=== PATIENT | male | born 1965 | race Caucasian/White ===

== ENCOUNTER 2017-01-11 10:28 | Inpatient (IN) | payer OTHER ==
[~2017-01-11] VITALS: Ht 172.7 cm; Wt 49.4 kg
[2017-01-11] VITALS (23 sets, daily range): BP systolic 149–200; BP diastolic 72–92; PULSE 70–103; RESP 18–37; Ht 172.7 cm; Wt 49.4 kg
[~2017-01-11 10:28] MED LIST: FURO40TA4 PO; HEP30MU30 IJ; LABE100T3 PO; LOSA100T7 PO; PEN500 PO
[2017-01-11] MEDS ORDERED: ECUL300V IV (11:18)
[2017-01-11] MEDS ORDERED: SODI15OR PO (11:19)
[2017-01-11 11:33] LABS: ADD SCAN DIFF NO
[2017-01-11 11:41] LABS: BASOPHIL # 0.1 10^3/ul (0.0-0.1); EOSINOPHILS # 0.3 10^3/ul (0.0-0.5); EOSINOPHILS % 4.6 % (0.0-7.0); HEMATOCRIT 32.2 % (42.0-52.0); HEMOGLOBIN 10.7 g/dl (14.0-18.0); LYMPHOCYTES # 1.5 10^3/ul (0.8-2.9); LYMPHOCYTES % 24.1 % (15.0-51.0); MEAN CORPUSCULAR HEMOGLOBIN 33.6 pg (29.0-33.0); MEAN CORPUSCULAR HGB CONC 33.2 g/dl (32.0-37.0); MEAN CORPUSCULAR VOLUME 101.3 fl (82.0-101.0); MEAN PLATELET VOLUME 10.9 fl (7.4-10.4); MONOCYTE # 0.4 10^3/ul (0.3-0.9); MONOCYTES % 5.9 % (0.0-11.0); NEUTROPHIL # 3.9 10^3/ul (1.6-7.5); NEUTROPHILS % 63.9 % (39.0-77.0); PLATELET COUNT 113 10^3/UL (140-415); RED BLOOD COUNT 3.18 10^6/ul (4.70-6.10); RED CELL DISTRIBUTION WIDTH 12.3 % (11.5-14.5); WHITE BLOOD COUNT 6.1 10^3/ul (4.8-10.8)
[2017-01-11 12:17] LABS: INR 1.02; PROTIME 13.4 Sec (12.2-14.2)
[2017-01-11 12:18] LABS: PARTIAL THROMBOPLASTIN TIME 34.3 Sec (25.0-35.0)
[2017-01-11 12:39] LABS: CALCIUM 8.9 mg/dl (8.4-10.2); CREATININE 4.65 mg/dl (0.61-1.24)
[2017-01-11] MEDS ORDERED: LIDOCAINE 1% (MDV) 20 ML INJ ONE (13:30)
[2017-01-11] MEDS ORDERED: HEPARIN 1000 UNITS/ML 10 ML INJ ONE (13:30)
--- NOTE | 2017-01-11 14:24 | OPR ---
Date/Time of Note Date/Time of Note DATE: 01/11/17 TIME: 14:23 Operative Report Free Text/Dictation DATE OF OPERATION: 01/11/2017 SURGEON: Geoff Haque MD PREOPERATIVE DIAGNOSIS: ESRD, hyperkalemia POSTOPERATIVE DIAGNOSIS: same ANESTHESIA: Local BLOOD LOSS: minimal COMPLICATIONS: None. ACCESS: Right common femoral vein INDICATIONS: This is a 51 year-old male with ESRD requiring emergent dialysis. Patient and family have been informed of the alternatives, risks, and benefits. Risks including but not limited to bleeding, thrombosis, embolization , myocardial infarction, , device malfunction, infection, pneumothorax, nephrotoxicity and patient has agreed to proceed. PROCEDURE: 1. Ultrasound guided access of right common femoral vein 2. Right common femoral vein non-tunneled hemodialysis catheter placement DESCRIPTION: The patient was in supine position in his bed. Bed was placed in slight Trendelenburg position and the groin was prepped and draped with sterile technique. The central catheter was flushed with heparin to ensure function of each port. Landmarks were identified and the skin entry site was chosen using ultrasound guidance. The skin And subcutaneous tissue were anesthetized with 1% lidocaine. The vein was then located with a needle with a 10 mL syringe using ultrasound guidance. The needle was then directed towards the vein and was entered. The needle position was secured and syringe was removed. The hub was occluded to prevent venous air embolus. The guidewire was passed easily and the needle was removed while the wire was held in place. A small incision was then made at the point of the wire entry. The dilator was placed over the wire and the tract gently dilated. The catheter was fed over the wire, ensuring the wire exited from the port before advancing the catheter. The catheter was inserted to the desired depth and the wire removed. Each port was aspirated to ensure adequate blood flow and then flushed with heparinized saline solution. The catheter was secured in place with a 2-0 nylon suture and a sterile dressing was applied. The patient tolerated the procedure well and was in stable condition. All instrument, sponge and needle counts were correct 2. GEOFF HAQUE MD Jan 11, 2017 14:24
--- NOTE | 2017-01-11 15:06 | CONS ---
DATE OF ADMISSION: 01/11/2017 DATE OF CONSULTATION: 01/11/2017 TYPE OF CONSULTATION: Vascular surgery consultation. Dear Doctors: Mr. Kenny is a 51-year-old gentleman with a past medical history of AAUS, who ended up having end-sta ge renal disease and has been on hemodialysis over the past 3.5 to 4 years. Patient had undergone a left brachiocephalic fistula creation that was done at [facility] and has been having issues with it over the past few months. The patient has been evaluated by our vascular surgery office and it was iden tified that the patient is having some areas of stenosis and neointimal hyperplasia that required a fistulogram and intervention. The patient was scheduled for intervention today; however, he present ed with having some mild chest pain and upon his laboratory workup, it was identified the patient ward s significant hyperkalemia with a potassium of 7. The patient mentioned that over the past week he has not been able to have adequate hemodialysis sessions and over the past few weeks his rates have not been able to be over 200. The patient at the moment denies shortness of breath, nausea, vomitin g, fever or chills. The patient currently denies left upper extremity claudication or rest pain-lik e symptoms. PAST MEDICAL HISTORY: 1. Entails hypertension, end-stage renal disease, on dialysis Saturday, , Saturday. 2. AAUS. 3. Childhood asthma. 4. Obsessive compulsive disorder. 5. Posttraumatic stress disorder. 6. Anxiety. 7. Postural orthostatic tachycardia syndrome. 8. Hemolytic uremic syndrome. 9. Atypical TTP syndrome. 10. Vitamin D deficiency. 11. Depression. 12. A history of multiple blood transfusions. 13. GERD. PAST SURGICAL HISTORY: 1. Multiple chest wall catheters. 2. Left upper extremity radiocephalic fistula creation. ALLERGIES: 1. BANANAS. 2. HYDRALAZINE. 3. MELONS. 4. STRAWBERRIES. MEDICATIONS: 1. Labetalol. 2. Losartan. 3. Lasix. 4. Soliris infusion. SOCIAL HISTORY: He is an active smoker, uses marijuana. He smokes 1 pack per day and also drinks c offee. He denies illicit drug use or social alcohol. FAMILY HISTORY: Entails hypertension, diabetes, cancers, kidney issues and multiple sclerosis with his sister. REVIEW OF SYSTEMS: A 12-point review was performed and negative except for what is mentioned in the HPI. PHYSICAL EXAMINATION: GENERAL: Alert and oriented x3, in no apparent distress. HEENT: Normocephalic, atraumatic. PERRLA, EOMI. Mucosa moist. Smoker's breath. Poor dentition. NECK: Supple. No carotid bruit. PULMONARY: Clear to auscultation bilaterally. No crackles. CARDIOVASCULAR: S1, S2 present. Bradycardiac. ABDOMEN: Soft, nontender, nondistended. Bowel sounds positive. EXTREMITIES: Bilateral lower extremities have a palpable femoral pulse, faint pedal pulse. Motor a nd sensory intact. Cap refill 2 to 3 seconds. No ulcers identified. Left upper extremity palpable brachial pulse. Palpable radial pulse. Motor and sensory intact. Ca pillary refill 2 to 3 seconds. Radiocephalic fistula with a weak bruit and thrill present. He has surgical scars that are well healed. ASSESSMENT AND PLAN: 1. End-stage renal disease and hyperkalemia. 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 It seems that the kalyn ent has not been able to have an adequate dialysis session and especially over the past 7 days, in [facility] his potassium currently is a level of 7. He will require emergent dialysis and he will need to be admitted. Will plan to place a Chris catheter for him with a multiport in order to have IV ac cess as well. Discussed the findings, plan and management with the patient, and he understands. 2. Optimize vascular status (BP meds, diet, nutrition, exercise, antiplatelets if recommended by PC P). 3. Discussed smoking cessation with the patient and he understands all the risks involved. Thank you for allowing us to partake in the care of your patient. Please call with any questions. Dictated By: JAMES UPTON/JOY Conf#: [id number] DID#: [id number]
--- NOTE | 2017-01-11 15:29 | HP ---
Date/Time of Note Date/Time of Note DATE: 01/11/17 TIME: 15:14 Assessment/Plan VTE Prophylaxis VTE Prophylaxis Intervention: heparin Assessment/Plan Assessment/Plan 51 yo male with a past medical history of ESRD on HD , essential hypertension, AHUS, Asthma, OCD, PTSD, POTS syndrome, Vit D deficiency, GERD, Smoking Abuse, who came in for elective fistulogram left upper extremity. 1. Severe hyperkalemia - will admit the patient to telemetry, consult nephrology for emergent dialysis, K cocktail, monitor for arrhythmias 2. ESRD on HD - - will get dialysis today, Dr. Diana Melchor consulted, Dr. Serrano c/s 3. Anemia of chronic kidney disease - monitor acute changes or drops, if hgb < 10 g/dL - continue with epogen 4. Essential hypertension - continue with current medications, holding ACEI 5. Asthma - prn duonebs 6. POTS - monitor for falls 7. AHUS - monitor active decline in platelets 8. GERD - continue with protonix 9. Psych - continue with home meds, prn ativan 10. Vit D deficiency - continue with supplementation 11. GI ppx - protonix 12. DVT ppx - heparin answered all of his questions, as per clinical course. this history and physical took greater then 45 minutes to complete HPI/ROS Admit Date/Time Admit Date/Time 01/11/2017, 3:14 pm Hx of Present Illness 51 yo male with a past medical history of ESRD on HD , essential hypertension, AHUS, Asthma, OCD, PTSD, POTS syndrome, Vit D deficiency, GERD, Smoking Abuse, who came in for elective fistulogram left upper extremity. The patient was noted to have an elevated potassium of 7.0. He had missed his dialysis for one week. He complains of paraesthesias bilateral upper extremities. Otherwise he denies any chest pain, shortness of breath, loss of consciousness, headaches, urinary/bowel irregularities, fevers/chills, nausea/ vomiting/diarrhea/constipation or other constitutional symptoms. ROS 14 point review of systems completed, please refer to HPI for any positive findings PMH/Family/Social Past Medical History ESRD on HD /, AHUS, Asthma, OCD, PTSD, POTS syndrome, Vit D deficiency Medical History: GERD, hypertension, renal disease Past Surgical History chest wall catheter placement, left upper extremity fistula placement, multiple fistulograms Family History Significant Family History: heart disease, cancer, diabetes, hypertension, renal disease Social History Alcohol Use: none Smoking Status: Current every day smoker (1 ppd) Drug Use: none Exam/Review of Systems Vital Signs Vitals Vital Signs Date Time Temp Pulse Resp B/P Pulse Ox O2 Delivery O2 Flow Rate FiO2 01/11/17 14:05 85 18 165/78 Room Air 01/11/17 11:28 97.6 98 Exam Exam Gen Jolene: mild distress 2/2 paraesthesias, AAOx4 HEENT: NC/AT, PERRLA, EOMI, no pharyngeal erythema, no tonsillar exudates, no lymphadenopathy, no JVD, no carotid bruits NECK: supple, no thyromegaly THORAX: symmetrical, no obvious deformities CV: S1S2, RRR, no M/G/R Lungs: CTAB no W/C/R/R Abd: soft, NT/ND, +BS, no rebound, no guarding, neg HSM EXT: no edema, no ecchymosis, no clubbing, FROM, LUE fistula bruit heard Neuro: CN II-XII grossly intact, bilateral upper extremity paraesthesias Psych: good mentation, alert and oriented, good mood and affect Skin: C/D/I Labs Result Diagram: 01/11/17 1113 01/11/17 1113 TREMAINE BUTLER MD Jan 11, 2017 15:29
[2017-01-11] MEDS ORDERED: NA POLYST SULFON 15 GM/60 ML BTL PO ONE (15:30)
[2017-01-11] MEDS ORDERED: DEXTROSE 50% 50 ML SYRINGE IV ONE (15:30)
[2017-01-11] MEDS ORDERED: ECULIZUMAB IV SCH (15:30)
[2017-01-11] MEDS ORDERED: DOCUSATE SODIUM 100 MG CAP PO PRN (15:30)
[2017-01-11] MEDS ORDERED: CALCIUM GLUCONATE 10% 1 GM in SOD CHLORIDE 0.9% 100 ML IVPB ONE (15:30)
[2017-01-11] MEDS ORDERED: INSULIN REGULAR, HUMAN 100 UNIT/1 ML 3ML VIAL IV ONE (15:30)
[2017-01-11] MEDS ORDERED: ONDANSETRON 4 MG INJ IV PRN (15:30)
[2017-01-11] MEDS ORDERED: NACL 0.9% 3 ML SYG IV SCH (15:30)
[2017-01-11] MEDS ORDERED: morphine 2 MG INJ IV PRN (15:30)
[2017-01-11] MEDS ORDERED: ALBUTEROL/IPRATROPIUM (NEB) 3 ML AMP HHN PRN (15:30)
[2017-01-11] MEDS ORDERED: NITROGLYCERIN (SL) 0.4 MG TAB SL PRN (15:30)
[2017-01-11] MEDS ORDERED: ACETAMINOPHEN 325 MG TAB PO PRN (15:30)
[2017-01-11] MEDS ORDERED: LORAZEPAM 2 MG INJ IV PRN (15:30)
[2017-01-11 16:44] LABS: CREATINE KINASE 109 IU/L (23-200)
[2017-01-11 16:45] LABS: MAGNESIUM 1.9 mg/dl (1.7-2.5)
[2017-01-11 16:46] LABS: CHOL/HDL RATIO 2.8 RATIO
[2017-01-11 17:05] LABS: CK-MB 1.53 ng/ml (0.0-2.4); TROPONIN-I < 0.012 ng/ml (0.00-0.12)
--- NOTE | 2017-01-11 17:20 | RADRPT ---
Vent Rate: 70 bpm RR Interval: 0 msec ID Interval: 140 msec QRS Duration: 90 msec QT Interval: 392 msec QTC Interval: 423 msec P-R-T [place]: 79 - 84 - 79 degrees Normal sinus rhythm with sinus arrhythmia Normal ECG Electronically Signed By: Josue Jasso [id number]
[2017-01-11 18:24] LABS: THYROID STIMULATING HORMONE 1.2 MIU/L (0.465-4.680)
[2017-01-11] MEDS: FUROSEMIDE 40 MG TAB PO SCH (18:53)
[2017-01-11] MEDS: LOSARTAN 50 MG TAB PO SCH (19:15)
[2017-01-11] MEDS: HEPARIN 5,000 UNIT/0.5 ML SYG SC SCH (21:00)
[2017-01-11 21:19] LABS: CREATINE KINASE 80 IU/L (23-200)
[2017-01-11 21:32] LABS: CK-MB 1.13 ng/ml (0.0-2.4)
[2017-01-11 21:33] LABS: TROPONIN-I < 0.012 ng/ml (0.00-0.12)
[2017-01-11] MEDS: LABETALOL 100 MG TAB PO SCH (21:44)
--- NOTE | 2017-01-11 22:32 | CONS ---
DATE OF ADMISSION: 01/11/2017 DATE OF CONSULTATION: 01/11/2017 NEPHROLOGY CONSULTATION REFERRING PHYSICIAN: Lalo Butler MD REASON FOR CONSULTATION: Maintenance hemodialysis in a chronic dialysis patient who presented with a clotted AV fistula. HISTORY OF PRESENT ILLNESS: This is a 51-year-old male with a past medical history of hypertension, history of hemolytic uremic syndrome who has been on hemodialysis Saturday, , Saturday. The patient has a history of atypical HUS. The patient was seen by Dr. Geoff Haque, vascular [facility] in the clinic for clotted AV fistula. The patient's also other past medical history includes obs essive compulsive disorder, asthma, PTSD, POTS syndrome, vitamin D deficiency, Smoking abuse. The p atient is planning to have an elective fistulogram because his AV fistula on the left upper extremit y is not working. He was noted to have a severe hyperkalemia with a potassium of 7 in the recovery room. His fistula plan was canceled and the patient gets admitted with a temporary Chris dialysis catheter placement to a telemetry floor. At the time of my evaluation, he was denying any chest pa in, palpitation, headache, dizziness, blurry vision, constipation, diarrhea, dysuria, increased urin keya frequency. REVIEW OF SYSTEMS: As per HPI. PAST MEDICAL HISTORY: Notable for hypertension, hyperlipidemia, atypical HUS, asthma, OCD, PTSD, PO TS syndrome, vitamin D deficiency, gastroesophageal reflux disease, smoking abuse, end-stage renal d isease on hemodialysis Saturday, , Saturday. PAST SURGICAL HISTORY: Left upper extremity AV fistula. SOCIAL HISTORY: No smoking, alcohol or recreational drug use. PHYSICAL EXAMINATION: VITAL SIGNS: Temperature 98.2, heart rate 82, respirations 16, blood pressure 189/86, saturation 99 % on room air. GENERAL: Awake, alert, mild distress due to the shortness of breath and elevated potassium. HEENT: Normal. Oropharynx clear, no jaundice. NECK: Supple, no JVD. LUNGS: Bilateral decreased breath sounds. No crackles, no wheezes. HEART: S1, S2, with regular rhythm, no murmur. ABDOMEN: Soft, nontender, nondistended. Bowel sounds are present. EXTREMITIES: No clubbing, cyanosis, or edema. Left upper extremity has AV fistula in place. NEUROLOGICAL: Nonfocal, intact. PSYCHIATRIC: Appropriate affect and mood. LABORATORY DATA/DIAGNOSTIC IMAGING: Sodium 142, potassium 7, chloride 113, bicarbonate 17, BUN 64, creatinine 4.6, glucose 85, calcium 8.9. Troponin x1 negative. Hemoglobin A1c is 6. WBC 6.1, hemo globin 10.7, platelet count is 113, PT 13.4, PTT 34.3, INR 1.02. IMPRESSION: This is a 51-year-old male with: 1. Acute hyperkalemia with potassium of 7. 2. History of end-stage renal disease on hemodialysis Saturday, , Saturday. 3. History of hypertension. 4. History of asthma. 5. History of atypical hemolytic-uremic syndrome, postural orthostatic tachycardia syndrome. 6. History of vitamin D deficiency. 7. History of gastroesophageal reflux disease. 8. History of smoking. 9. Clotted left upper extremity arteriovenous fistula. PLAN: 1. Thank you, Dr. Butler, for this consultation. I will arrange the patient's hemodialysis today as soon as possible for hyperkalemia. We will use a 2K 2.5 calcium bath. 2. Continue the other home medications for his hypertension, hydralazine IV p.r.n. systolic blood p ressure more than 150 and nifedipine. The patient is already on ____ 300 mcg IV for 14 days for his atypical hemolytic-uremic syndrome. 3. The patient was seen on the telemetry floor. We will use HYDRALAZINE p.r.n. systolic blood pres sure more than 150 and the patient will be followed up along with the primary care service and vascu lar surgery. Please note that THE PATIENT IS ALLERGIC TO HYDRALAZINE, so clonidine would be a better choice for p .r.n. systolic blood pressure more than 150. Thank you, Dr. Butler, for this consultation. I will continue to follow this patient along with [facility] primary care service and vascular service. Dictated By: CHAMP GUIDRY MD, KP/JOY Conf#: [id number] DID#: [id number] CC: GEOFF HAQUE MD; LALO BUTLER MD;*EndCC*
[2017-01-11] MEDS: ACETAMINOPHEN 325 MG TAB PO PRN (23:41)
[2017-01-12] VITALS (18 sets, daily range): BP systolic 139–188; BP diastolic 72–90; PULSE 75–106; RESP 20
[2017-01-12] MEDS: FUROSEMIDE 40 MG TAB PO SCH ×2 (06:13→22:35)
[2017-01-12] MEDS: PANTOPRAZOLE (EC) 40 MG TAB PO SCH (06:13)
[2017-01-12 07:20] LABS: ADD SCAN DIFF NO
[2017-01-12 07:28] LABS: POTASSIUM 4.6 mmol/L (3.5-5.1)
[2017-01-12 07:31] LABS: BASOPHILS % 0.3 % (0.0-2.0); CREATININE 3.15 mg/dl (0.61-1.24); EOSINOPHILS # 0.2 10^3/ul (0.0-0.5); EOSINOPHILS % 2.5 % (0.0-7.0); HEMATOCRIT 29.7 % (42.0-52.0); HEMOGLOBIN 10.3 g/dl (14.0-18.0); LYMPHOCYTES # 1.6 10^3/ul (0.8-2.9); LYMPHOCYTES % 22.9 % (15.0-51.0); MEAN CORPUSCULAR HEMOGLOBIN 33.9 pg (29.0-33.0); MEAN CORPUSCULAR HGB CONC 34.7 g/dl (32.0-37.0); MEAN CORPUSCULAR VOLUME 97.7 fl (82.0-101.0); MEAN PLATELET VOLUME 9.2 fl (7.4-10.4); MONOCYTE # 0.5 10^3/ul (0.3-0.9); MONOCYTES % 7.5 % (0.0-11.0); NEUTROPHIL # 4.6 10^3/ul (1.6-7.5); NEUTROPHILS % 66.8 % (39.0-77.0); PLATELET COUNT 103 10^3/UL (140-440); RED BLOOD COUNT 3.04 10^6/ul (4.70-6.10); RED CELL DISTRIBUTION WIDTH 12.6 % (11.5-14.5); WHITE BLOOD COUNT 6.8 10^3/ul (4.8-10.8)
[2017-01-12 07:32] LABS: CALCIUM 8.1 mg/dl (8.4-10.2)
--- NOTE | 2017-01-12 08:00 | PN ---
Date/Time of Note Date/Time of Note DATE: 01/12/17 TIME: 07:57 Assessment/Plan Assessment/Plan Chief Complaint/Hosp Course -End-stage renal disease and hyperkalemia. It seems that the patient has not been able to have an adequate dialysis session and especially over the past 7 days, in which his potassium level was 7 on admission. S/P Chris catheter placement -Will schedule for angiogram on Saturday pending landscape laborer availability -Optimize vascular status (BP meds, diet, nutrition, exercise, antiplatelets if recommended by PCP). -Discussed smoking cessation with the patient and he understands all the risks involved. -Discussed the findings, plan and management with the patient, and he understands. -Thank you for allowing us to partake in the care of your patient. Please call with any questions. Problems: Subjective 24 Hr Interval Summary no new vascular events overnight, tolerated dialysis well Exam/Review of Systems Vital Signs Vitals Vital Signs Date Time Temp Pulse Resp B/P Pulse Ox O2 Delivery O2 Flow Rate FiO2 01/12/17 07:26 98.2 86 20 167/89 98 01/12/17 04:05 Room Air Intake and Output 01/11/17 01/11/17 01/12/17 15:00 23:00 07:00 Intake Total 100 ml 600 ml Output Total 600 ml Balance 100 ml 0 ml Exam Free Text/Dictation GENERAL: Alert and oriented x3, PULMONARY: Clear to auscultation bilaterally CARDIOVASCULAR: S1, S2 present ABDOMEN: Soft, nontender, nondistended. Bowel sounds positive. EXTREMITIES: Left upper extremity palpable brachial pulse. Palpable radial pulse. Motor and sensory intact. Capillary refill 2 to 3 seconds. Radiocephalic fistula with a weak bruit and thrill present. He has surgical scars that are well healed. Results Result Diagram: 01/12/1761801/12/17618 JAMES HAQUE MD Jan 12, 2017 08:00
[2017-01-12] MEDS: ACETAMINOPHEN 325 MG TAB PO PRN ×2 (08:50→18:17)
[2017-01-12] MEDS: LABETALOL 100 MG TAB PO SCH ×2 (08:51→20:34)
[2017-01-12] MEDS: HEPARIN 5,000 UNIT/0.5 ML SYG SC SCH ×2 (08:53→20:45)
--- NOTE | 2017-01-12 09:51 | PN ---
Date/Time of Note Date/Time of Note DATE: 01/12/17 TIME: 09:48 Assessment/Plan VTE Prophylaxis VTE Prophylaxis Intervention: heparin Assessment/Plan Assessment/Plan 51 yo male with a past medical history of ESRD on HD , essential hypertension, AHUS, Asthma, OCD, PTSD, POTS syndrome, Vit D deficiency, GERD, Smoking Abuse, who came in for elective fistulogram left upper extremity. 1. Severe hyperkalemia - s/p dialysis - resolved 2. ESRD on HD - /Sat - will get dialysis today, Dr. Diana Melchor consulted, Dr. Serrano c/s - HD as per nephro 3. Anemia of chronic kidney disease - monitor acute changes or drops, if hgb < 10 g/dL - continue with epogen 4. Essential hypertension - continue with current medications, can resume Losartan 5. Asthma - prn duonebs 6. POTS - monitor for falls 7. AHUS - monitor active decline in platelets 8. GERD - continue with protonix 9. Psych - continue with home meds, prn ativan 10. Vit D deficiency - continue with supplementation 11. GI ppx - protonix 12. DVT ppx - heparin dispo - angiogram 01/14/17, answered all of his questions, as per clinical course. this progress note took greater than 40 minutes to complete Subjective 24 Hr Interval Summary Free Text/Dictation Patient was admitted yesterday 01/03 to having severe hyperkalemia. he underwent successful dialysis. I spoke to in regards to missing dialysis. he understood that he needs to come in earlier if this happens again. Otherwise spoke to him about the care plan. 15 minutes spent. Exam/Review of Systems Vital Signs Vitals Vital Signs Date Time Temp Pulse Resp B/P Pulse Ox O2 Delivery O2 Flow Rate FiO2 01/12/17 08:17 85 01/12/17 07:26 98.2 20 167/89 98 01/12/17 04:05 Room Air Intake and Output 01/11/17 01/11/17 01/12/17 15:00 23:00 07:00 Intake Total 100 ml 600 ml Output Total 600 ml Balance 100 ml 0 ml Exam Gen Jolene: NAD, AAOx4 HEENT: NC/AT, PERRLA, EOMI, no pharyngeal erythema, no tonsillar exudates, no lymphadenopathy, no JVD, no carotid bruits NECK: supple, no thyromegaly THORAX: symmetrical, no obvious deformities CV: S1S2, RRR, no M/G/R Lungs: CTAB no W/C/R/R Abd: soft, NT/ND, +BS, no rebound, no guarding, neg HSM EXT: no edema, no ecchymosis, no clubbing, FROM, LUE extremity no bruit auscultated Neuro: CN II-XII grossly intact, bilateral upper extremity paraesthesias Psych: good mentation, alert and oriented, good mood and affect Skin: C/D/I Results Result Diagram: 01/12/1761801/12/17618 Results 24 hrs Laboratory Tests Test 01/11/17 11:13 01/11/17 16:15 01/11/17 21:00 01/12/17 06:19 Activated Partial Thromboplast Time 34.3 Anion Gap 19 H 18 H Basophils # 0.1 0.0 Basophils % 1.0 0.3 Blood Urea Nitrogen 64 H 38 #H Calcium Level 8.9 8.1 L Carbon Dioxide Level 17 L 29 # Chloride Level 113 H 97 # Creatinine 4.65 H 3.15 #H Eosinophils # 0.3 0.2 Eosinophils % 4.6 2.5 Glucose Level 85 86 Hematocrit 32.2 #L 29.7 L Hemoglobin 10.7 #L 10.3 L INR International Normalized Ratio 1.02 Lymphocytes # 1.5 1.6 Lymphocytes % 24.1 22.9 Mean Corpuscular Hemoglobin 33.6 H 33.9 H Mean Corpuscular Hemoglobin Concent 33.2 34.7 Mean Corpuscular Volume 101.3 H 97.7 Mean Platelet Volume 10.9 #H 9.2 Monocytes # 0.4 0.5 Monocytes % 5.9 7.5 Neutrophils # 3.9 4.6 Neutrophils % 63.9 66.8 Nucleated Red Blood Cells # 0.0 0.0 Nucleated Red Blood Cells % 0.0 0.0 Platelet Count 113 L 103 L Potassium Level 7.0 *H 3.2 #L 4.6 Prothrombin Time 13.4 Prothrombin Time Ratio 1.0 Red Blood Count 3.18 #L 3.04 L Red Cell Distribution Width 12.3 12.6 Sodium Level 142 139 White Blood Count 6.1 6.8 Cholesterol Level 124 Cholesterol/HDL Ratio 2.8 Creatine Kinase 109 80 Creatine Kinase Index 1.4 1.4 Creatinine Kinase MB (Mass) 1.53 1.13 HDL Cholesterol 43 Hemoglobin A1c 6.0 H LDL Cholesterol, Calculated 68 Magnesium Level 1.9 Thyroid Stimulating Hormone (TSH) 1.200 Triglycerides Level 65 Troponin I < 0.012 < 0.012 Medications Medications Current Medications Lorazepam (Ativan) 0.5 mg Q6H PRN IV ANXIETY; Start 01/11/17 at 15:30 Ondansetron HCl (Zofran Inj) 4 mg Q6H PRN IV NAUSEA AND/OR VOMITING; Start 09/17 at 15:30 Nitroglycerin (Nitroglycerin (Sl Tab) 0.4 Mg) 1 tab Q5M PRN SL CHEST PAIN; Start 01/11/17 at 15:30 Morphine Sulfate (morphine) 2 mg Q4H PRN IV PAIN LEVEL 7-10 Last administered on 01/12/17 02:07; Admin Dose 2 MG; Start 01/11/17 at 15:30 Docusate Sodium (Colace) 100 mg Q12H PRN PO CONSTIPATION; Start 01/11/17 at 15: 30 Pantoprazole (Protonix Tab) 40 mg DAILY@06 PO Last administered on 01/12/17 06 :13; Admin Dose 40 MG; Start 01/12/17 at 06:00 Heparin Sodium (Porcine) (Heparin (5000 Units/0.5 ml)) 5,000 unit Q12 SC Last administered on 01/12/17 08:53; Admin Dose 5,000 UNIT; Start 01/11/17 at 21:00 Furosemide (Lasix) 40 mg BID@06,18 PO Last administered on 01/12/17 06:13; Admin Dose 40 MG; Start 01/11/17 at 18:00 Labetalol HCl (Normodyne) 100 mg BID PO Last administered on 01/12/17 08:51; Admin Dose 100 MG; Start 01/11/17 at 19:30 Losartan Potassium (Cozaar) 100 mg HS PO Last administered on 01/11/17 19:15; Admin Dose 100 MG; Start 01/11/17 at 19:30 Acetaminophen (Tylenol Tab) 650 mg Q4H PRN PO PAIN LEVEL 1-3 OR FEVER Last administered on 01/12/17 08:50; Admin Dose 650 MG; Start 01/11/17 at 23:30 TREMAINE BUTLER MD Jan 12, 2017 09:51
--- NOTE | 2017-01-12 10:43 | CONS ---
Date/Time of Note Date/Time of Note DATE: 01/12/17 TIME: 10:41 Assessment/Plan Assessment/Plan Additional Assessment/Plan 1. Acute hyperkalemia with potassium of 7. 2. History of end-stage renal disease on hemodialysis Saturday, , Saturday. 3. History of hypertension. 4. History of asthma. 5. History of atypical hemolytic-uremic syndrome, postural orthostatic tachycardia syndrome. 6. History of vitamin D deficiency. 7. History of gastroesophageal reflux disease. 8. History of smoking. 9. Clotted left upper extremity arteriovenous fistula. plan: s/p Hd yesteray will plan for HD toady, pt regula schedule is TTS will follow up Consultation Date/Type/Reason Admit Date/Time Jan 11, 2017 at 15:06 Initial Consult Date Jan Type of Consultation: NEPHROLOGy Referring Provider: TREMAINE BUTLER MD 24 HR Interval Summary Free Text/Dictation s/p HD yesterday, No acute events, Currently has henderson cathter, awaiting fistulogram Exam/Review of Systems Vital Signs Vitals Vital Signs Date Time Temp Pulse Resp B/P Pulse Ox O2 Delivery O2 Flow Rate FiO2 01/12/17 08:17 85 01/12/17 07:26 98.2 20 167/89 98 01/12/17 04:05 Room Air Intake and Output 01/11/17 01/11/17 01/12/17 15:00 23:00 07:00 Intake Total 100 ml 600 ml Output Total 600 ml Balance 100 ml 0 ml Exam GENERAL: Awake, alert, mild distress due to the shortness of breath and elevated potassium. HEENT: Normal. Oropharynx clear, no jaundice. NECK: Supple, no JVD. LUNGS: Bilateral decreased breath sounds. No crackles, no wheezes. HEART: S1, S2, with regular rhythm, no murmur. ABDOMEN: Soft, nontender, nondistended. Bowel sounds are present. EXTREMITIES: No clubbing, cyanosis, or edema. Left upper extremity has AV fistula in place. NEUROLOGICAL: Nonfocal, intact. PSYCHIATRIC: Appropriate affect and mood. Results Result Diagram: 01/12/17 0619 01/12/17 0619 Results 24 hrs Laboratory Tests Test 01/11/17 11:13 01/11/17 16:15 01/11/17 21:00 01/12/17 06:19 Activated Partial Thromboplast Time 34.3 Anion Gap 19 H 18 H Basophils # 0.1 0.0 Basophils % 1.0 0.3 Blood Urea Nitrogen 64 H 38 #H Calcium Level 8.9 8.1 L Carbon Dioxide Level 17 L 29 # Chloride Level 113 H 97 # Creatinine 4.65 H 3.15 #H Eosinophils # 0.3 0.2 Eosinophils % 4.6 2.5 Glucose Level 85 86 Hematocrit 32.2 #L 29.7 L Hemoglobin 10.7 #L 10.3 L INR International Normalized Ratio 1.02 Lymphocytes # 1.5 1.6 Lymphocytes % 24.1 22.9 Mean Corpuscular Hemoglobin 33.6 H 33.9 H Mean Corpuscular Hemoglobin Concent 33.2 34.7 Mean Corpuscular Volume 101.3 H 97.7 Mean Platelet Volume 10.9 #H 9.2 Monocytes # 0.4 0.5 Monocytes % 5.9 7.5 Neutrophils # 3.9 4.6 Neutrophils % 63.9 66.8 Nucleated Red Blood Cells # 0.0 0.0 Nucleated Red Blood Cells % 0.0 0.0 Platelet Count 113 L 103 L Potassium Level 7.0 *H 3.2 #L 4.6 Prothrombin Time 13.4 Prothrombin Time Ratio 1.0 Red Blood Count 3.18 #L 3.04 L Red Cell Distribution Width 12.3 12.6 Sodium Level 142 139 White Blood Count 6.1 6.8 Cholesterol Level 124 Cholesterol/HDL Ratio 2.8 Creatine Kinase 109 80 Creatine Kinase Index 1.4 1.4 Creatinine Kinase MB (Mass) 1.53 1.13 HDL Cholesterol 43 Hemoglobin A1c 6.0 H LDL Cholesterol, Calculated 68 Magnesium Level 1.9 Thyroid Stimulating Hormone (TSH) 1.200 Triglycerides Level 65 Troponin I < 0.012 < 0.012 Medications Medications Current Medications Lorazepam (Ativan) 0.5 mg Q6H PRN IV ANXIETY; Start 01/11/17 at 15:30 Ondansetron HCl (Zofran Inj) 4 mg Q6H PRN IV NAUSEA AND/OR VOMITING; Start 09/17 at 15:30 Nitroglycerin (Nitroglycerin (Sl Tab) 0.4 Mg) 1 tab Q5M PRN SL CHEST PAIN; Start 01/11/17 at 15:30 Morphine Sulfate (morphine) 2 mg Q4H PRN IV PAIN LEVEL 7-10 Last administered on 01/12/17 02:07; Admin Dose 2 MG; Start 01/11/17 at 15:30 Docusate Sodium (Colace) 100 mg Q12H PRN PO CONSTIPATION; Start 01/11/17 at 15: 30 Pantoprazole (Protonix Tab) 40 mg DAILY@06 PO Last administered on 01/12/17 06 :13; Admin Dose 40 MG; Start 01/12/17 at 06:00 Heparin Sodium (Porcine) (Heparin (5000 Units/0.5 ml)) 5,000 unit Q12 SC Last administered on 01/12/17 08:53; Admin Dose 5,000 UNIT; Start 01/11/17 at 21:00 Furosemide (Lasix) 40 mg BID@06,18 PO Last administered on 01/12/17 06:13; Admin Dose 40 MG; Start 01/11/17 at 18:00 Labetalol HCl (Normodyne) 100 mg BID PO Last administered on 01/12/17 08:51; Admin Dose 100 MG; Start 01/11/17 at 19:30 Losartan Potassium (Cozaar) 100 mg HS PO Last administered on 01/11/17 19:15; Admin Dose 100 MG; Start 01/11/17 at 19:30 Acetaminophen (Tylenol Tab) 650 mg Q4H PRN PO PAIN LEVEL 1-3 OR FEVER Last administered on 01/12/17 08:50; Admin Dose 650 MG; Start 01/11/17 at 23:30 CHAMP GUIDRY MD Jan 12, 2017 10:43
[2017-01-12] MEDS: LOSARTAN 50 MG TAB PO SCH (20:35)
[2017-01-13] VITALS (12 sets, daily range): BP systolic 153–169; BP diastolic 75–89; PULSE 72–110; RESP 16–19
[2017-01-13] MEDS: ACETAMINOPHEN 325 MG TAB PO PRN (00:05)
[2017-01-13] MEDS: FUROSEMIDE 40 MG TAB PO SCH ×2 (05:18→17:23)
[2017-01-13] MEDS: PANTOPRAZOLE (EC) 40 MG TAB PO SCH (05:18)
[2017-01-13 07:26] LABS: BASOPHILS % 0.3 % (0.0-2.0); EOSINOPHILS # 0.2 10^3/ul (0.0-0.5); HEMATOCRIT 29.5 % (42.0-52.0); HEMOGLOBIN 10.1 g/dl (14.0-18.0); LYMPHOCYTES # 1.9 10^3/ul (0.8-2.9); LYMPHOCYTES % 36.4 % (15.0-51.0); MEAN CORPUSCULAR HEMOGLOBIN 33.7 pg (29.0-33.0); MEAN CORPUSCULAR HGB CONC 34.1 g/dl (32.0-37.0); MEAN CORPUSCULAR VOLUME 98.7 fl (82.0-101.0); MEAN PLATELET VOLUME 9.1 fl (7.4-10.4); MONOCYTE # 0.4 10^3/ul (0.3-0.9); MONOCYTES % 8.4 % (0.0-11.0); NEUTROPHIL # 2.6 10^3/ul (1.6-7.5); NEUTROPHILS % 50.9 % (39.0-77.0); PLATELET COUNT 96 10^3/UL (140-440); RED BLOOD COUNT 2.99 10^6/ul (4.70-6.10); RED CELL DISTRIBUTION WIDTH 12.7 % (11.5-14.5); UNCORRECTED WBC 5.1 10^3/ul (4.8-10.8); WHITE BLOOD COUNT 5.1 10^3/ul (4.8-10.8)
[2017-01-13 07:36] LABS: POTASSIUM 4.2 mmol/L (3.5-5.1)
[2017-01-13 07:38] LABS: CONDITION 1; CREATININE 3.07 mg/dl (0.61-1.24)
[2017-01-13 07:39] LABS: CALCIUM 8.5 mg/dl (8.4-10.2)
[2017-01-13] MEDS: HEPARIN 5,000 UNIT/0.5 ML SYG SC SCH ×2 (08:38→09:59)
[2017-01-13] MEDS: LABETALOL 100 MG TAB PO SCH ×2 (08:38→09:49)
--- NOTE | 2017-01-13 10:13 | PN ---
Date/Time of Note Date/Time of Note DATE: 01/13/17 TIME: 10:11 Assessment/Plan VTE Prophylaxis VTE Prophylaxis Intervention: heparin Lines/Catheters [facility] Chris Cath Assessment/Plan Assessment/Plan 51 yo male with a past medical history of ESRD on HD /, essential hypertension, AHUS, Asthma, OCD, PTSD, POTS syndrome, Vit D deficiency, GERD, Smoking Abuse, who came in for elective fistulogram left upper extremity. 1. Severe hyperkalemia - s/p dialysis - resolved 2. ESRD on HD - //Sat - will get dialysis today, Dr. Diana Melchor consulted, Dr. Serrano c/s - HD as per nephro - daily 3. Anemia of chronic kidney disease - monitor acute changes or drops, if hgb < 10 g/dL - continue with epogen 4. Essential hypertension - continue with current medications, can resume Losartan - stable 5. Asthma - prn duonebs 6. POTS - monitor for falls 7. AHUS - monitor active decline in platelets 8. GERD - continue with protonix 9. Psych - continue with home meds, prn ativan 10. Vit D deficiency - continue with supplementation 11. GI ppx - protonix 12. DVT ppx - heparin dispo - angiogram 01/14/17, answered all of his questions, as per clinical course. this progress note took greater than 20 minutes to complete Subjective 24 Hr Interval Summary Free Text/Dictation Patient is doing better today. Had no overnight events. Dialyzed yesterday. Spoke to him about the care plan. 15 minutes spent. Exam/Review of Systems Vital Signs Vitals Vital Signs Date Time Temp Pulse Resp B/P Pulse Ox O2 Delivery O2 Flow Rate FiO2 01/13/17 08:31 73 01/13/17 07:54 97.7 19 156/89 97 01/13/17 04:00 Room Air Intake and Output 01/12/17 01/12/17 01/13/17 15:00 23:00 07:00 Intake Total 250 ml 1000 ml 800 ml Output Total 400 ml 1200 ml 400 ml Balance -150 ml -200 ml 400 ml Exam Gen Jolene: NAD, AAOx4 HEENT: NC/AT, PERRLA, EOMI, no pharyngeal erythema, no tonsillar exudates, no lymphadenopathy, no JVD, no carotid bruits NECK: supple, no thyromegaly THORAX: symmetrical, no obvious deformities CV: S1S2, RRR, no M/G/R Lungs: CTAB no W/C/R/R Abd: soft, NT/ND, +BS, no rebound, no guarding, neg HSM EXT: no edema, no ecchymosis, no clubbing, FROM, LUE extremity no bruit auscultated Neuro: CN II-XII grossly intact, bilateral upper extremity paraesthesias Psych: good mentation, alert and oriented, good mood and affect Skin: C/D/I Results Result Diagram: 01/13/17 0615 01/13/17 0615 Results 24 hrs Laboratory Tests Test 01/13/17 06:15 Anion Gap 16 Basophils # 0.0 Basophils % 0.3 Blood Morphology Comment Blood Urea Nitrogen 25 #H Calcium Level 8.5 Carbon Dioxide Level 28 Chloride Level 101 Creatinine 3.07 H Differential Comment AUTO w/SCAN Eosinophils # 0.2 Eosinophils % 4.0 Glucose Level 87 Hematocrit 29.5 L Hemoglobin 10.1 L Large Platelets OCCASIONAL Lymphocytes # 1.9 Lymphocytes % 36.4 Mean Corpuscular Hemoglobin 33.7 H Mean Corpuscular Hemoglobin Concent 34.1 Mean Corpuscular Volume 98.7 Mean Platelet Volume 9.1 Monocytes # 0.4 Monocytes % 8.4 Neutrophils # 2.6 Neutrophils % 50.9 Nucleated Red Blood Cells # 0.0 Nucleated Red Blood Cells % 0.0 Platelet Count 96 L Potassium Level 4.2 Red Blood Count 2.99 L Red Cell Distribution Width 12.7 Sodium Level 141 White Blood Count 5.1 # Medications Medications Current Medications Lorazepam (Ativan) 0.5 mg Q6H PRN IV ANXIETY; Start 01/11/17 at 15:30 Ondansetron HCl (Zofran Inj) 4 mg Q6H PRN IV NAUSEA AND/OR VOMITING; Start 09/17 at 15:30 Nitroglycerin (Nitroglycerin (Sl Tab) 0.4 Mg) 1 tab Q5M PRN SL CHEST PAIN; Start 01/11/17 at 15:30 Morphine Sulfate (morphine) 2 mg Q4H PRN IV PAIN LEVEL 7-10 Last administered on 01/12/17t 02:07; Admin Dose 2 MG; Start 01/11/17 at 15:30 Docusate Sodium (Colace) 100 mg Q12H PRN PO CONSTIPATION Last administered on 05:18; Admin Dose 100 MG; Start 01/11/17 at 15:30 Pantoprazole (Protonix Tab) 40 mg DAILY@06 PO Last administered on 01/13/17 05 :18; Admin Dose 40 MG; Start 01/12/17 at 06:00 Heparin Sodium (Porcine) (Heparin (5000 Units/0.5 ml)) 5,000 unit Q12 SC Last administered on 01/13/17 09:59; Admin Dose 5,000 UNIT; Start 01/11/17 at 21:00 Furosemide (Lasix) 40 mg BID@06,18 PO Last administered on 01/13/17 05:18; Admin Dose 40 MG; Start 01/11/17 at 18:00 Labetalol HCl (Normodyne) 100 mg BID PO Last administered on 01/13/17 09:49; Admin Dose 100 MG; Start 01/11/17 at 19:30 Losartan Potassium (Cozaar) 100 mg HS PO Last administered on 01/12/17 20:35; Admin Dose 100 MG; Start 01/11/17 at 19:30 Acetaminophen (Tylenol Tab) 650 mg Q4H PRN PO PAIN LEVEL 1-3 OR FEVER Last administered on 01/13/17 00:05; Admin Dose 650 MG; Start 01/11/17 at 23:30 TREMAINE BUTLER MD Jan 13, 2017 10:13
--- NOTE | 2017-01-13 11:26 | CONS ---
Date/Time of Note Date/Time of Note DATE: 01/13/17 TIME: 11:23 Assessment/Plan Assessment/Plan Additional Assessment/Plan 1. Acute hyperkalemia with potassium of 7.2 s/p HD 2 days in a row 2. History of end-stage renal disease on hemodialysis Saturday, , Saturday. 3. History of hypertension. 4. History of asthma. 5. History of atypical hemolytic-uremic syndrome, postural orthostatic tachycardia syndrome. 6. History of vitamin D deficiency. 7. History of gastroesophageal reflux disease. 8. History of smoking. 9. Clotted left upper extremity arteriovenous fistula. plan: s/p Hd 2 days in a row will plan for HD tomorrow after thrombectomy done by vascualr surgery , pt regula schedule is TTS will follow up Consultation Date/Type/Reason Admit Date/Time Jan 11, 2017 at 15:06 Initial Consult Date Jan Type of Consultation: NEPHROLOGy Reason for Consultation ESRD on HD with clotted AVF Referring Provider: TREMAINE BUTLER MD 24 HR Interval Summary Free Text/Dictation s/p HD yesterday, plan for thrombectomey tomorrow, will order HD for tomorrow Exam/Review of Systems Vital Signs Vitals Vital Signs Date Time Temp Pulse Resp B/P Pulse Ox O2 Delivery O2 Flow Rate FiO2 01/13/17 08:31 73 01/13/17 07:54 97.7 19 156/89 97 01/13/17 04:00 Room Air Intake and Output 01/12/17 01/12/17 01/13/17 15:00 23:00 07:00 Intake Total 250 ml 1000 ml 800 ml Output Total 400 ml 1200 ml 400 ml Balance -150 ml -200 ml 400 ml Exam GENERAL: Awake, alert, mild distress due to the shortness of breath and elevated potassium. HEENT: Normal. Oropharynx clear, no jaundice. NECK: Supple, no JVD. LUNGS: Bilateral decreased breath sounds. No crackles, no wheezes. HEART: S1, S2, with regular rhythm, no murmur. ABDOMEN: Soft, nontender, nondistended. Bowel sounds are present. EXTREMITIES: No clubbing, cyanosis, or edema. Left upper extremity has AV fistula in place. NEUROLOGICAL: Nonfocal, intact. PSYCHIATRIC: Appropriate affect and mood. Results Result Diagram: 01/13/1761401/13/1715 Results 24 hrs Laboratory Tests Test 01/13/17 06:15 Anion Gap 16 Basophils # 0.0 Basophils % 0.3 Blood Morphology Comment Blood Urea Nitrogen 25 #H Calcium Level 8.5 Carbon Dioxide Level 28 Chloride Level 101 Creatinine 3.07 H Differential Comment AUTO w/SCAN Eosinophils # 0.2 Eosinophils % 4.0 Glucose Level 87 Hematocrit 29.5 L Hemoglobin 10.1 L Large Platelets OCCASIONAL Lymphocytes # 1.9 Lymphocytes % 36.4 Mean Corpuscular Hemoglobin 33.7 H Mean Corpuscular Hemoglobin Concent 34.1 Mean Corpuscular Volume 98.7 Mean Platelet Volume 9.1 Monocytes # 0.4 Monocytes % 8.4 Neutrophils # 2.6 Neutrophils % 50.9 Nucleated Red Blood Cells # 0.0 Nucleated Red Blood Cells % 0.0 Platelet Count 96 L Potassium Level 4.2 Red Blood Count 2.99 L Red Cell Distribution Width 12.7 Sodium Level 141 White Blood Count 5.1 # Medications Medications Current Medications Lorazepam (Ativan) 0.5 mg Q6H PRN IV ANXIETY; Start 01/11/17 at 15:30 Ondansetron HCl (Zofran Inj) 4 mg Q6H PRN IV NAUSEA AND/OR VOMITING; Start 09/17 at 15:30 Nitroglycerin (Nitroglycerin (Sl Tab) 0.4 Mg) 1 tab Q5M PRN SL CHEST PAIN; Start 01/11/17 at 15:30 Morphine Sulfate (morphine) 2 mg Q4H PRN IV PAIN LEVEL 7-10 Last administered on 01/12/17 02:07; Admin Dose 2 MG; Start 01/11/17 at 15:30 Docusate Sodium (Colace) 100 mg Q12H PRN PO CONSTIPATION Last administered on 05:18; Admin Dose 100 MG; Start 01/11/17 at 15:30 Pantoprazole (Protonix Tab) 40 mg DAILY@06 PO Last administered on 01/13/17 05 :18; Admin Dose 40 MG; Start 01/12/17 at 06:00 Heparin Sodium (Porcine) (Heparin (5000 Units/0.5 ml)) 5,000 unit Q12 SC Last administered on 01/13/17 09:59; Admin Dose 5,000 UNIT; Start 01/11/17 at 21:00 Furosemide (Lasix) 40 mg BID@06,18 PO Last administered on 01/13/17 05:18; Admin Dose 40 MG; Start 01/11/17 at 18:00 Labetalol HCl (Normodyne) 100 mg BID PO Last administered on 01/13/17 09:49; Admin Dose 100 MG; Start 01/11/17 at 19:30 Losartan Potassium (Cozaar) 100 mg HS PO Last administered on 01/12/17 20:35; Admin Dose 100 MG; Start 01/11/17 at 19:30 Acetaminophen (Tylenol Tab) 650 mg Q4H PRN PO PAIN LEVEL 1-3 OR FEVER Last administered on 01/13/17 00:05; Admin Dose 650 MG; Start 01/11/17 at 23:30 Miscellaneous Information (*Order Clarification Bulletin) (Eculizumab (Soliris) 300 MG) PLE... Q8H XX ; Start 01/13/17 at 11:30 CHAMP GUIDRY MD Jan 13, 2017 11:26
[2017-01-13] MEDS: [UNRECOGNIZED DRUG - OTHER] XX SCH ×2 (11:30→19:30)
[2017-01-13] MEDS: NICOTINE (14 MG/24 HR) PATCH TRANSDERM SCH (16:00)
[2017-01-13] MEDS: LOSARTAN 50 MG TAB PO SCH (20:47)
[2017-01-14] VITALS (9 sets, daily range): BP systolic 149–182; BP diastolic 74–82; PULSE 66–100; RESP 16–18
[2017-01-14] MEDS: [UNRECOGNIZED DRUG - OTHER] XX SCH ×3 (03:30→19:30)
[2017-01-14] MEDS: FUROSEMIDE 40 MG TAB PO SCH ×2 (05:37→18:13)
[2017-01-14] MEDS: PANTOPRAZOLE (EC) 40 MG TAB PO SCH (05:37)
[2017-01-14 06:23] LABS: BASOPHILS % 0.7 % (0.0-2.0); EOSINOPHILS # 0.3 10^3/ul (0.0-0.5); EOSINOPHILS % 5.5 % (0.0-7.0); HEMATOCRIT 29.3 % (42.0-52.0); HEMOGLOBIN 10.2 g/dl (14.0-18.0); LYMPHOCYTES % 35.1 % (15.0-51.0); MEAN CORPUSCULAR HEMOGLOBIN 34.3 pg (29.0-33.0); MEAN CORPUSCULAR HGB CONC 34.7 g/dl (32.0-37.0); MEAN CORPUSCULAR VOLUME 98.7 fl (82.0-101.0); MEAN PLATELET VOLUME 9.5 fl (7.4-10.4); MONOCYTE # 0.5 10^3/ul (0.3-0.9); MONOCYTES % 8.3 % (0.0-11.0); NEUTROPHIL # 2.9 10^3/ul (1.6-7.5); NEUTROPHILS % 50.4 % (39.0-77.0); PLATELET COUNT 100 10^3/UL (140-440); RED BLOOD COUNT 2.97 10^6/ul (4.70-6.10); RED CELL DISTRIBUTION WIDTH 12.8 % (11.5-14.5); UNCORRECTED WBC 5.8 10^3/ul (4.8-10.8); WHITE BLOOD COUNT 5.8 10^3/ul (4.8-10.8)
[2017-01-14 06:31] LABS: CONDITION 1
[2017-01-14 06:39] LABS: POTASSIUM 4.5 mmol/L (3.5-5.1)
[2017-01-14 06:41] LABS: CREATININE 4.3 mg/dl (0.61-1.24)
[2017-01-14 06:42] LABS: CALCIUM 8.7 mg/dl (8.4-10.2)
[2017-01-14] MEDS: NICOTINE (14 MG/24 HR) PATCH TRANSDERM SCH (09:00)
[2017-01-14] MEDS: LABETALOL 100 MG TAB PO SCH ×2 (09:00→20:49)
[2017-01-14] MEDS: HEPARIN 5,000 UNIT/0.5 ML SYG SC SCH ×2 (09:04→20:49)
--- NOTE | 2017-01-14 09:46 | PN ---
Date/Time of Note Date/Time of Note DATE: 01/14/17 TIME: 09:43 Assessment/Plan VTE Prophylaxis VTE Prophylaxis Intervention: heparin Lines/Catheters IV Catheter Type (from Nrs): JOSE ANGEL CATHETER Assessment/Plan Chief Complaint/Hosp Course Assessment/Plan: 51 yo male with a past medical history of ESRD on HD / , essential hypertension, AHUS, Asthma, OCD, PTSD, POTS syndrome, Vit D deficiency, GERD, Smoking Abuse, who came in for elective fistulogram left upper extremity. 1. Severe hyperkalemia - s/p dialysis - resolved - monitor, f/u renal rec's 2. ESRD on HD - //Sat - refused dialysis today, Dr. Diana Melchor consulted, Dr. Serrano c/s - HD as per nephro - for possible procedure regarding clotted fistula later today 3. Anemia of chronic kidney disease - monitor acute changes or drops, if hgb < 10 g/dL - continue with epogen 4. Essential hypertension - high nL range - continue with current medications 5. Asthma - prn duonebs 6. POTS - monitor for falls 7. AHUS - monitor active decline in platelets 8. GERD - continue with protonix 9. Psych - continue with home meds, prn ativan 10. Vit D deficiency - continue with supplementation 11. GI ppx - protonix 12. DVT ppx - heparin dispo - angiogram 01/14/17, answered all of his questions, as per clinical course. Problems: Subjective 24 Hr Interval Summary Free Text/Dictation Per nursing, pt refused HD today. Awaiting procedure later today on clotted fistula. Exam/Review of Systems Vital Signs Vitals Vital Signs Date Time Temp Pulse Resp B/P Pulse Ox O2 Delivery O2 Flow Rate FiO2 01/14/17 09:36 78 01/13/17 19:34 98.5 16 159/85 98 01/13/17 04:00 Room Air Intake and Output 01/13/17 01/13/17 01/14/17 15:00 23:00 07:00 Intake Total 900 ml 300 ml Output Total 250 ml 700 ml 600 ml Balance -250 ml 200 ml -300 ml Exam Gen Jolene: NAD, AAOx4 HEENT: NC/AT, PERRLA, EOMI NECK: supple, no thyromegaly THORAX: symmetrical, no obvious deformities CV: S1S2, RRR, no M/G/R Lungs: CTAB no W/C/R/R Abd: soft, NT/ND, +BS, no rebound, no guarding, neg HSM EXT: no edema, no ecchymosis, no clubbing, FROM, LUE extremity no bruit auscultated Neuro: CN II-XII grossly intact, bilateral upper extremity paraesthesias Psych: good mentation, alert and oriented, good mood and affect Skin: C/D/I Results Result Diagram: 01/14/1753601/14/17536 Results 24 hrs Laboratory Tests Test 01/14/17 05:37 Anion Gap 18 H Basophils # 0.0 Basophils % 0.7 Blood Morphology Comment Blood Urea Nitrogen 42 #H Calcium Level 8.7 Carbon Dioxide Level 25 Chloride Level 104 Creatinine 4.30 #H Eosinophils # 0.3 Eosinophils % 5.5 Glucose Level 94 Hematocrit 29.3 L Hemoglobin 10.2 L Lymphocytes # 2.0 Lymphocytes % 35.1 Mean Corpuscular Hemoglobin 34.3 H Mean Corpuscular Hemoglobin Concent 34.7 Mean Corpuscular Volume 98.7 Mean Platelet Volume 9.5 Monocytes # 0.5 Monocytes % 8.3 Neutrophils # 2.9 Neutrophils % 50.4 Nucleated Red Blood Cells # 0.0 Nucleated Red Blood Cells % 0.0 Platelet Count 100 L Potassium Level 4.5 Red Blood Count 2.97 L Red Cell Distribution Width 12.8 Sodium Level 142 White Blood Count 5.8 Medications Medications Current Medications Lorazepam (Ativan) 0.5 mg Q6H PRN IV ANXIETY; Start 01/11/17 at 15:30 Ondansetron HCl (Zofran Inj) 4 mg Q6H PRN IV NAUSEA AND/OR VOMITING; Start 09/17 at 15:30 Nitroglycerin (Nitroglycerin (Sl Tab) 0.4 Mg) 1 tab Q5M PRN SL CHEST PAIN; Start 01/11/17 at 15:30 Morphine Sulfate (morphine) 2 mg Q4H PRN IV PAIN LEVEL 7-10 Last administered on 01/12/17 02:07; Admin Dose 2 MG; Start 01/11/17 at 15:30 Docusate Sodium (Colace) 100 mg Q12H PRN PO CONSTIPATION Last administered on 05:18; Admin Dose 100 MG; Start 01/11/17 at 15:30 Pantoprazole (Protonix Tab) 40 mg DAILY@06 PO Last administered on 01/14/17 05 :37; Admin Dose 40 MG; Start 01/12/17 at 06:00 Heparin Sodium (Porcine) (Heparin (5000 Units/0.5 ml)) 5,000 unit Q12 SC Last administered on 01/14/17 09:04; Admin Dose 5,000 UNIT; Start 01/11/17 at 21:00 Furosemide (Lasix) 40 mg BID@06,18 PO Last administered on 01/14/17 05:37; Admin Dose 40 MG; Start 01/11/17 at 18:00 Labetalol HCl (Normodyne) 100 mg BID PO Last administered on 01/14/17 09:00; Admin Dose 100 MG; Start 01/11/17 at 19:30 Losartan Potassium (Cozaar) 100 mg HS PO Last administered on 01/13/17 20:47; Admin Dose 100 MG; Start 01/11/17 at 19:30 Acetaminophen (Tylenol Tab) 650 mg Q4H PRN PO PAIN LEVEL 1-3 OR FEVER Last administered on 01/13/17 00:05; Admin Dose 650 MG; Start 01/11/17 at 23:30 Miscellaneous Information (*Order Clarification Bulletin) (Eculizumab (Soliris) 300 MG) PLE... Q8H XX ; Start 01/13/17 at 11:30 Nicotine (Nicoderm 14 Mg/ 24hr) 1 patch DAILY TRANSDERM ; Start 01/13/17 at 16: 00 JUAN DAVID JARRETT Jan 14, 2017 09:46
[2017-01-14] MEDS ORDERED: IODIXANOL LOCM 100 ML BTL ONE (14:28)
[2017-01-14] MEDS ORDERED: LIDOCAINE 1% (MDV) 20 ML INJ ONE (14:28)
[2017-01-14] MEDS ORDERED: HEPARIN 1000 UNITS/NS (A-LINE) 1,000 ML ONE (14:28)
[2017-01-14] MEDS ORDERED: MIDAZOLAM 1 MG/ML 2 ML INJ ONE (14:29)
[2017-01-14] MEDS ORDERED: FENTAnyl 50 MCG/ML VIAL ONE (14:29)
--- NOTE | 2017-01-14 14:49 | CONS ---
Date/Time of Note Date/Time of Note DATE: 01/14/17 TIME: 14:48 Assessment/Plan Assessment/Plan Additional Assessment/Plan 1. Acute hyperkalemia with potassium of 7.2 s/p HD 2 days in a row 2. History of end-stage renal disease on hemodialysis Saturday, , Saturday. 3. History of hypertension. 4. History of asthma. 5. History of atypical hemolytic-uremic syndrome, postural orthostatic tachycardia syndrome. 6. History of vitamin D deficiency. 7. History of gastroesophageal reflux disease. 8. History of smoking. 9. Clotted left upper extremity arteriovenous fistula. plan: plan for HD today after thrombectomy done by vascualr surgery , pt regula schedule is TTS will follow up Consultation Date/Type/Reason Admit Date/Time Jan 11, 2017 at 15:06 Initial Consult Date Jan Type of Consultation: NEPHROLOGy Referring Provider: TREMAINE BUTLER MD 24 HR Interval Summary Free Text/Dictation afebrile, BP stable Exam/Review of Systems Vital Signs Vitals Vital Signs Date Time Temp Pulse Resp B/P Pulse Ox O2 Delivery O2 Flow Rate FiO2 01/14/17 12:39 66 01/13/17 19:34 98.5 16 159/85 98 01/13/17 04:00 Room Air Intake and Output 01/13/17 01/13/17 01/14/17 15:00 23:00 07:00 Intake Total 900 ml 300 ml Output Total 250 ml 700 ml 600 ml Balance -250 ml 200 ml -300 ml Results Result Diagram: 01/14/17 0537 01/14/17 0537 Results 24 hrs Laboratory Tests Test 01/14/17 05:37 Anion Gap 18 H Basophils # 0.0 Basophils % 0.7 Blood Morphology Comment Blood Urea Nitrogen 42 #H Calcium Level 8.7 Carbon Dioxide Level 25 Chloride Level 104 Creatinine 4.30 #H Eosinophils # 0.3 Eosinophils % 5.5 Glucose Level 94 Hematocrit 29.3 L Hemoglobin 10.2 L Lymphocytes # 2.0 Lymphocytes % 35.1 Mean Corpuscular Hemoglobin 34.3 H Mean Corpuscular Hemoglobin Concent 34.7 Mean Corpuscular Volume 98.7 Mean Platelet Volume 9.5 Monocytes # 0.5 Monocytes % 8.3 Neutrophils # 2.9 Neutrophils % 50.4 Nucleated Red Blood Cells # 0.0 Nucleated Red Blood Cells % 0.0 Platelet Count 100 L Potassium Level 4.5 Red Blood Count 2.97 L Red Cell Distribution Width 12.8 Sodium Level 142 White Blood Count 5.8 Medications Medications Current Medications Lorazepam (Ativan) 0.5 mg Q6H PRN IV ANXIETY; Start 01/11/17 at 15:30 Ondansetron HCl (Zofran Inj) 4 mg Q6H PRN IV NAUSEA AND/OR VOMITING; Start 09/17 at 15:30 Nitroglycerin (Nitroglycerin (Sl Tab) 0.4 Mg) 1 tab Q5M PRN SL CHEST PAIN; Start 01/11/17 at 15:30 Morphine Sulfate (morphine) 2 mg Q4H PRN IV PAIN LEVEL 7-10 Last administered on 01/12/17 02:07; Admin Dose 2 MG; Start 01/11/17 at 15:30 Docusate Sodium (Colace) 100 mg Q12H PRN PO CONSTIPATION Last administered on 05:18; Admin Dose 100 MG; Start 01/11/17 at 15:30 Pantoprazole (Protonix Tab) 40 mg DAILY@06 PO Last administered on 01/14/17 05 :37; Admin Dose 40 MG; Start 01/12/17 at 06:00 Heparin Sodium (Porcine) (Heparin (5000 Units/0.5 ml)) 5,000 unit Q12 SC Last administered on 01/14/17 09:04; Admin Dose 5,000 UNIT; Start 01/11/17 at 21:00 Furosemide (Lasix) 40 mg BID@06,18 PO Last administered on 01/14/17 05:37; Admin Dose 40 MG; Start 01/11/17 at 18:00 Labetalol HCl (Normodyne) 100 mg BID PO Last administered on 01/14/17 09:00; Admin Dose 100 MG; Start 01/11/17 at 19:30 Losartan Potassium (Cozaar) 100 mg HS PO Last administered on 01/13/17 20:47; Admin Dose 100 MG; Start 01/11/17 at 19:30 Acetaminophen (Tylenol Tab) 650 mg Q4H PRN PO PAIN LEVEL 1-3 OR FEVER Last administered on 01/13/17 00:05; Admin Dose 650 MG; Start 01/11/17 at 23:30 Miscellaneous Information (*Order Clarification Bulletin) (Eculizumab (Soliris) 300 MG) PLE... Q8H XX ; Start 01/13/17 at 11:30 Nicotine (Nicoderm 14 Mg/ 24hr) 1 patch DAILY TRANSDERM ; Start 01/13/17 at 16: 00 CHAMP GUIDRY MD Jan 14, 2017 14:49
[2017-01-14] MEDS ORDERED: SOD CHLORIDE 0.9% 500 ML ONE (14:59)
--- NOTE | 2017-01-14 18:36 | OPR ---
DATE OF OPERATION: 01/14/2017 SURGEON: Geoff Serrano MD FLUOROSCOPY VOGEL: Andrew Hernandez MD PREOPERATIVE DIAGNOSES: 1. End-stage renal disease. 2. Malfunctioning left upper extremity arteriovenous fistula. POSTOPERATIVE DIAGNOSES: 1. End-stage renal disease. 2. Malfunctioning left upper extremity arteriovenous fistula. ANESTHESIA: Local with sedation. ESTIMATED BLOOD LOSS: Minimal. COMPLICATIONS: None. HEPARIN: None. CONTRAST: As recorded. ACCESS 4-Slovak sheath in the left upper extremity fistula. CLOSURE: Manual compression. 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 The patient has had a left upper extremity radiocephalic fistula that he has us ed for many years that unfortunately it has become malfunctioned. The patient presented with hyperk alemia on Saturday and needed to be admitted for dialysis and had a Chris catheter placed urgently. The patient had been informed of alternatives, risks, and benefits of a venogram, balloon angioplas ty, and stenting. Risks included but not limited to bleeding, thrombosis, embolization, myocardial infarction, , device malfunction, infection, nephrotoxicity, and has agreed to proceed. PROCEDURE: 1. Ultrasound-guided access of the left upper extremity fistula. 2. Left upper extremity fistulogram. 3. Central venogram subclavian vein, superior vena cava, internal jugular vein, and brachiocephalic vein. FINDINGS: 1. Patent radial artery. 2. Patent ulnar artery. 3. Patent brachial artery. 4. Patent interosseous artery. 5. There is a slight stenosis in the distal most aspect of the radial artery prior to the anastomos is. 6. The radiocephalic vein is patent proximally and soon after it becomes severely fibrosed with gre ater than 90% stenosis. 7. Then in the mid aspect of the cephalic vein in the forearm it is patent; however, there is a tri butary that continues the cephalic vein, which is again severely fibrosis near 90% stenosis. 8. The cephalic vein is patent in the upper arm. 9. The basilic vein is patent in the upper arm. 10. Cephalic arch is patent. 11. Brachial vein is patent. 12. Axillary vein is patent. 13. Subclavian vein seems to be patent. There seems to be a stenosis in the area of the distal sub clavian vein near the junction of the internal jugular vein. 14. Left brachiocephalic vein seems to be patient with moderate disease. 15. Superior vena cava is patent. DESCRIPTION OF PROCEDURE: The patient was brought into the angio suite and positioned in supine pos ition on the fluoroscopic table. Sedation was administered without complications. Left upper extre mity was shaved, prepped, and draped in the usual standard sterile fashion. Timeout and appropriate site was marked and confirmed. Local anesthesia was infiltrated in the region of the left upper ex tremity fistula. The fistula was encountered with the micro access needle under ultrasound guidance and a Guidewire w as advanced into the distal aspect of the cephalic vein. The needle was then removed and a micro ca theter was placed. Multistation fistulogram and a central venogram were performed and findings are noted above. At this point, it was identified that no further intervention can be performed in orde r to salvage the fistula. Therefore, catheter was removed and manual compression was placed. The p atient tolerated the procedure well and was taken to the postanesthesia care unit in stable conditio n. PLAN: We will have a discussion with the patient as to he will require a new fistula creation in th e upper arm near the elbow area. I will also schedule the patient for a perm catheter, as he will n eed that while the fistula will take time for maturation. Dictated By: GEOFF UPTON/JOY Conf#: [id number] DID#: [id number] CC: TREMAINE BUTLER MD;*EndCC*
[2017-01-14] MEDS: LOSARTAN 50 MG TAB PO SCH (20:48)
[2017-01-15] VITALS (18 sets, daily range): BP systolic 135–190; BP diastolic 73–93; PULSE 70–92; RESP 18–19
[2017-01-15] MEDS: [UNRECOGNIZED DRUG - OTHER] XX SCH ×3 (03:30→18:55)
[2017-01-15] MEDS: PANTOPRAZOLE (EC) 40 MG TAB PO SCH (05:33)
[2017-01-15] MEDS: FUROSEMIDE 40 MG TAB PO SCH ×2 (05:34→17:28)
[2017-01-15 06:45] LABS: BASOPHILS % 0.5 % (0.0-2.0); EOSINOPHILS # 0.4 10^3/ul (0.0-0.5); EOSINOPHILS % 6.4 % (0.0-7.0); HEMATOCRIT 28.8 % (42.0-52.0); HEMOGLOBIN 9.8 g/dl (14.0-18.0); LYMPHOCYTES # 1.8 10^3/ul (0.8-2.9); LYMPHOCYTES % 30.4 % (15.0-51.0); MEAN CORPUSCULAR HEMOGLOBIN 33.7 pg (29.0-33.0); MEAN CORPUSCULAR HGB CONC 34.1 g/dl (32.0-37.0); MEAN CORPUSCULAR VOLUME 98.9 fl (82.0-101.0); MEAN PLATELET VOLUME 9.6 fl (7.4-10.4); MONOCYTE # 0.5 10^3/ul (0.3-0.9); MONOCYTES % 9.1 % (0.0-11.0); NEUTROPHIL # 3.2 10^3/ul (1.6-7.5); NEUTROPHILS % 53.6 % (39.0-77.0); PLATELET COUNT 99 10^3/UL (140-440); RED BLOOD COUNT 2.91 10^6/ul (4.70-6.10); RED CELL DISTRIBUTION WIDTH 12.8 % (11.5-14.5); UNCORRECTED WBC 5.9 10^3/ul (4.8-10.8); WHITE BLOOD COUNT 5.9 10^3/ul (4.8-10.8)
[2017-01-15 06:46] LABS: CONDITION 1; POTASSIUM 4.9 mmol/L (3.5-5.1)
[2017-01-15 06:48] LABS: CREATININE 4.5 mg/dl (0.61-1.24)
[2017-01-15 06:49] LABS: CALCIUM 8.7 mg/dl (8.4-10.2)
[2017-01-15] MEDS: HEPARIN 5,000 UNIT/0.5 ML SYG SC SCH (08:52)
[2017-01-15] MEDS: LABETALOL 100 MG TAB PO SCH (08:53)
[2017-01-15] MEDS: NICOTINE (14 MG/24 HR) PATCH TRANSDERM SCH (08:53)
--- NOTE | 2017-01-15 10:29 | PDOCDIS ---
Discharge Instructions CONDITION Patient Condition: Stable HOME CARE INSTRUCTIONS: Diet Instructions: Low Fat /Cholesterol ACTIVITY: Activity Restrictions: Slowly Increase Activity FOLLOW UP/APPOINTMENTS Appointments Please take your medications as prescribed. And see your doctors in the clinic in 1 week. JUAN DAVID JARRETT Jan 15, 2017 10:29
[2017-01-15] MEDS ORDERED: LIDOCAINE 100 MG SYRINGE ONE (11:01)
[2017-01-15] MEDS ORDERED: HEPARIN 1000 UNITS/ML 10 ML INJ ONE (11:01)
[2017-01-15] MEDS ORDERED: MIDAZOLAM 1 MG/ML 2 ML INJ ONE (11:01)
--- NOTE | 2017-01-15 11:01 | DS ---
DATE OF ADMISSION: 01/11/2017 DATE OF DISCHARGE: 01/15/2017 HOSPITAL COURSE: A 51-year-old male originally admitted on 01/11/2017 and being discharged home on 01/15/2015 pending results of his PermCath placement. The patient was initially admitted for an nicolás ctive fistulogram of his left upper extremity. He also came with severe hyperkalemia. He was admit angella to telemetry floor, seen by renal team and vascular surgery team during this hospital stay. His potassium corrected after treatment with dialysis and medicines to bring his potassium down. The p atient did receive a Chris catheter placement to continue dialysis. He underwent a procedure rega rding his fistula as it was thought to be clotted as there was a malfunctioning left upper extremity AV fistula. Unfortunately, the patient will require a new fistula creation in the upper arm near th e elbow area and in the meantime, the patient is being scheduled for PermCath placement today. He w as also given nicotine ____ and educated about smoking cessation as he was requesting to smoke, whic h is not allowed at the hospital. In any event, during his hospital stay his vital signs were stabl e, again his potassium levels improved. He was able to ambulate and tolerate a p.o. diet and again after PermCath placement later today if he is cleared by the devops consultant teams and there are no posto perative complications, he will be discharged later today in improved condition. DISCHARGE MEDICATIONS: If he goes today, he will be sent with: 1. Soliris 300 mg IV every 2 weeks. 2. Lasix 40 mg p.o. b.i.d. 3. Heparin 1000 units injection weekly. 4. Labetalol 100 mg b.i.d. 5. Losartan 100 mg daily. 6. Kionex 15 grams p.o. as needed. He will need to follow up with his hemolytic uremic anemia specialist at [facility] in the next few days an d we will provide him with a phone number and office address for a primary care doctor for patient t o follow up with next week as he does not presently have a primary care doctor. FINAL DIAGNOSES: 1. Elective fistulogram ____ left upper extremity because it's malfunctioning. 2. History of end-stage renal disease on hemodialysis, now getting PermCath placement. 3. History of anemia of chronic disease. 4. Hypertension. 5. Asthma 6. Hemolytic uremic syndrome. The patient follows up as outpatient at [facility] for that. 7. History of Vitamin D deficiency. 8. History of smoking. Counseled on smoking cessation ____ Time spent on patient 45 minutes. Dictated By: JUAN DAVID RUCKER Conf#: [id number] DID#: [id number]
[2017-01-15] MEDS ORDERED: CEFAZOLIN 1 GM/50 ML (PMX) 50 ML IVPB ONE (11:02)
[2017-01-15] MEDS ORDERED: FENTAnyl 50 MCG/ML VIAL ONE (11:02)
[2017-01-15] MEDS ORDERED: DIPHENHYDRAMINE 50 MG INJ ONE (11:02)
--- NOTE | 2017-01-15 12:32 | CONS ---
Date/Time of Note Date/Time of Note DATE: 01/15/17 TIME: 12:28 Assessment/Plan Assessment/Plan Additional Assessment/Plan 1. Acute hyperkalemia with potassium of 7.2 s/p HD 2 days in a row - now resolved 2. History of end-stage renal disease on hemodialysis Saturday, , Saturday. 3. History of hypertension. 4. History of asthma. 5. History of atypical hemolytic-uremic syndrome, postural orthostatic tachycardia syndrome. 6. History of vitamin D deficiency. 7. History of gastroesophageal reflux disease. 8. History of smoking. 9. Clotted left upper extremity arteriovenous fistula s/p unsuccessful declotting plan: s/p Unsuccessful declotting of LUE AVF- plan for permacath today HD today after permacath will follow up Consultation Date/Type/Reason Admit Date/Time Jan 11, 2017 at 15:06 Initial Consult Date Jan Type of Consultation: NEPHROLOGy Reason for Consultation ESRD on HD with clotted AVF Referring Provider: TREMAINE BUTLRE MD 24 HR Interval Summary Free Text/Dictation plan for declotting Exam/Review of Systems Vital Signs Vitals Vital Signs Date Time Temp Pulse Resp B/P Pulse Ox O2 Delivery O2 Flow Rate FiO2 01/15/17 12:14 78 01/15/17 07:16 98.2 18 147/80 96 01/14/17 18:10 Room Air Intake and Output 01/14/17 01/14/17 01/15/17 15:00 23:00 07:00 Intake Total 300 ml Output Total 400 ml Balance -100 ml Results Result Diagram: 01/15/17 0535 01/15/17 0535 Results 24 hrs Laboratory Tests Test 01/15/17 05:35 Anion Gap 21 H Basophils # 0.0 Basophils % 0.5 Blood Morphology Comment Blood Urea Nitrogen 61 H Calcium Level 8.7 Carbon Dioxide Level 24 Chloride Level 101 Creatinine 4.50 H Eosinophils # 0.4 Eosinophils % 6.4 Glucose Level 92 Hematocrit 28.8 L Hemoglobin 9.8 L Lymphocytes # 1.8 Lymphocytes % 30.4 Mean Corpuscular Hemoglobin 33.7 H Mean Corpuscular Hemoglobin Concent 34.1 Mean Corpuscular Volume 98.9 Mean Platelet Volume 9.6 Monocytes # 0.5 Monocytes % 9.1 Neutrophils # 3.2 Neutrophils % 53.6 Nucleated Red Blood Cells # 0.0 Nucleated Red Blood Cells % 0.0 Platelet Count 99 L Potassium Level 4.9 Red Blood Count 2.91 L Red Cell Distribution Width 12.8 Sodium Level 141 White Blood Count 5.9 Medications Medications Current Medications Lorazepam (Ativan) 0.5 mg Q6H PRN IV ANXIETY; Start 01/11/17 at 15:30 Ondansetron HCl (Zofran Inj) 4 mg Q6H PRN IV NAUSEA AND/OR VOMITING; Start 09/17 at 15:30 Nitroglycerin (Nitroglycerin (Sl Tab) 0.4 Mg) 1 tab Q5M PRN SL CHEST PAIN; Start 01/11/17 at 15:30 Morphine Sulfate (morphine) 2 mg Q4H PRN IV PAIN LEVEL 7-10 Last administered on 01/12/17 02:07; Admin Dose 2 MG; Start 01/11/17 at 15:30 Docusate Sodium (Colace) 100 mg Q12H PRN PO CONSTIPATION Last administered on 05:18; Admin Dose 100 MG; Start 01/11/17 at 15:30 Pantoprazole (Protonix Tab) 40 mg DAILY@06 PO Last administered on 01/15/17 05 :33; Admin Dose 40 MG; Start 01/12/17 at 06:00 Heparin Sodium (Porcine) (Heparin (5000 Units/0.5 ml)) 5,000 unit Q12 SC Last administered on 01/14/17 20:49; Admin Dose 5,000 UNIT; Start 01/11/17 at 21:00 Furosemide (Lasix) 40 mg BID@06,18 PO Last administered on 01/15/17 05:34; Admin Dose 40 MG; Start 01/11/17 at 18:00 Labetalol HCl (Normodyne) 100 mg BID PO Last administered on 01/15/17 08:53; Admin Dose 100 MG; Start 01/11/17 at 19:30 Losartan Potassium (Cozaar) 100 mg HS PO Last administered on 01/14/17 20:48; Admin Dose 100 MG; Start 01/11/17 at 19:30 Acetaminophen (Tylenol Tab) 650 mg Q4H PRN PO PAIN LEVEL 1-3 OR FEVER Last administered on 01/13/17 00:05; Admin Dose 650 MG; Start 01/11/17 at 23:30 Miscellaneous Information (*Order Clarification Bulletin) (Eculizumab (Soliris) 300 MG) PLE... Q8H XX ; Start 01/13/17 at 11:30 Nicotine (Nicoderm 14 Mg/ 24hr) 1 patch DAILY TRANSDERM ; Start 01/13/17 at 16: 00 CHAMP GUIDRY MD Jan 15, 2017 12:32
--- NOTE | 2017-01-15 12:44 | PN ---
Date/Time of Note Date/Time of Note DATE: 01/15/17 TIME: 12:41 Assessment/Plan Lines/Catheters IV C[facility]ter [facility]from [facility]): JOSE ANGEL CATH Assessment/Plan Chief Complaint/Hosp Course -End-stage renal disease and hyperkalemia. It seems that the patient has not been able to have an adequate dialysis session and especially over the past 7 days, in which his potassium level was 7 on admission. S/P Jose Angel catheter placement -S/P fistulogram that demonstrated fibrosed segments of the cephalic vein in the forearm which would not benefit from endovascular intervention. Will schedule patient for revision and creation of a new fistula. -Optimize vascular status (BP meds, diet, nutrition, exercise, antiplatelets if recommended by PCP). -Discussed smoking cessation with the patient and he understands all the risks involved. -Discussed the findings, plan and management with the patient, and he understands. -Thank you for allowing us to partake in the care of your patient. Please call with any questions. Problems: Subjective 24 Hr Interval Summary No new vascular events overnight Exam/Review of Systems Vital Signs Vitals Vital Signs Date Time Temp Pulse Resp B/P Pulse Ox O2 Delivery O2 Flow Rate FiO2 01/15/17 12:14 78 01/15/17 07:16 98.2 18 147/80 96 01/14/17 18:10 Room Air Intake and Output 01/14/17 01/14/17 01/15/17 15:00 23:00 07:00 Intake Total 300 ml Output Total 400 ml Balance -100 ml Exam Free Text/Dictation GENERAL: Alert and oriented x3, PULMONARY: Clear to auscultation bilaterally CARDIOVASCULAR: S1, S2 present ABDOMEN: Soft, nontender, nondistended. Bowel sounds positive. EXTREMITIES: Left upper extremity palpable brachial pulse. Palpable radial pulse. Motor and sensory intact. Capillary refill 2 to 3 seconds. Radiocephalic fistula with a weak bruit and thrill present. He has surgical scars that are well healed. Results Result Diagram: 01/15/17 0535 01/15/17 0535 JAMES HAQUE MD Jan 15, 2017 12:44
[2017-01-15] MEDS: ACETAMINOPHEN 325 MG TAB PO PRN ×2 (13:17→17:29)
--- NOTE | 2017-01-15 14:58 | RADRPT ---
PROCEDURE: XR Chest. CLINICAL INDICATION: Post R procedure. TECHNIQUE: Single frontal view of the chest was obtained COMPARISON: Chest x-ray 11/21/2016. FINDINGS: The heart is normal in size. The left-sided aorta is normal. The trachea and hilar structures are normal. The lungs are clear. The diaphragms are flattened. No pleural effusion is noted. The bon y elements are normal. There is a small nodular density is above the left diaphragm which is likely the result of small granuloma. No pneumothorax is identified. IMPRESSION: 1. Pulmonary hyperinflation without evidence of a pneumothorax or pulmonary infiltrate. 2. There are 2 small nodular density is above the left diaphragm which are unchanged compared to . The more peripheral density as likely a small granuloma. 3. No evidence of pneumothorax. RPTAT:AAJJ Physician Nasim Date Time Electronically viewed and signed by Physician Nasim on 01/15/2017 14:58 /
--- NOTE | 2017-01-18 08:27 | RADRPT ---
PROCEDURE: PLACEMENT OF RIGHT COMMON FEMORAL VEIN TUNNELED DIALYSIS CATHETER. .. CLINICAL INDICATION: Renal failure. TECHNIQUE: Prior to the procedure, informed consent was obtained. Risks including bleeding, infection, and pneu mothorax were explained to the patient. The patient understood and was willing to proceed. A procedu ral pause was performed. The patient's name, date of , and procedure to be performed were verif ied. The central line was inserted with all elements of maximal sterile barrier technique. All of th e following were used: head covering, facial mask, sterile gown, sterile gloves, a large sterile she et, hand hygiene, and 2% chlorhexidine for cutaneous antisepsis. The right neck and anterior/super ior chest wall was prepped and draped in usual sterile fashion. Following the local injection of Xylocaine, a 0.035 in Amplatz guidewire was advanced through the ex isting temporary dialysis catheter. A tunnel was then created from the anterior aspect of the right thigh to the puncture site in the right inguinal region and the catheter was pulled through the tra ct. The existing temporary dialysis catheter was removed over the guidewire. Serial dilatation was then performed and a 16 Prydeinig peel away sheath was introduced. The 14.5 Prydeinig 55cm long Palindro me dialysis catheter was advanced through the 16 Prydeinig peel-away sheath which time, it was determin ed that the catheter was too long, extending into the upper part of the right atrium. Therefore, the catheter was exchanged for a 33 cm long Palindrome dialysis catheter. The tip of the catheter was confirmed in position within the upper inferior vena cava at the upper L1 level. The peel-away sheat h was removed. The 2 ports were each flushed with 2.2 ml of 1:1000 heparin. The catheter was secured to the skin with 2-0 silk. The wound in the right inguinal region was closed with 4-0 Vicry l suture using subcuticular running technique. The site was dressed. The patient tolerated the pro cedure well. COMPARISON: None. FINDINGS: Final radiographic images demonstrate the tip of the catheter in the lower right atrium. A total of 0.5 minutes of fluoroscopy time was used. IMPRESSION: 1. Percutaneous insertion of right common femoral vein dialysis tunneled dialysis catheter under flu oroscopic guidance. RPTAT: QQ .Delvin Walter MD, MD Date Time Electronically viewed and signed by .Delvin Walter MD, MD on 01/15/2017 16:55 .R/
== END 2017-01-15 20:00 | disposition home or self-care (01) | DRG 640 ==
LOC: SDS 10:28 → TEL 15:06 → SDS 15:06
PROVIDERS: ADMIT Student in an Organized Health Care Education/Training Program; ATTEND Student in an Organized Health Care Education/Training Program
PROC: 06HM33Z Insertion of Infusion Device into Right Femoral Vein, Percutaneous Approach (ICD-10-PCS; principal; 2017-01-11)
PROC: 5A1D60Z (ICD-10-PCS; 2017-01-11)
PROC: B51W1ZZ Fluoroscopy of Dialysis Shunt/Fistula using Low Osmolar Contrast (ICD-10-PCS; 2017-01-14)
DX: E87.5 Hyperkalemia (principal); N18.6 End stage renal disease; D59.3 Hemolytic-uremic syndrome; I12.0 Hypertensive chronic kidney disease with stage 5 chronic kidney disease or end stage renal disease; T82.858A Stenosis of other vascular prosthetic devices, implants and grafts, initial encounter; Z72.0 Tobacco use; F12.90 Cannabis use, unspecified, uncomplicated; Z99.2 Dependence on renal dialysis; D63.1 Anemia in chronic kidney disease; J45.909 Unspecified asthma, uncomplicated; K21.9 Gastro-esophageal reflux disease without esophagitis; E55.9 Vitamin D deficiency, unspecified
CPT/HCPCS: 36558; 36901; 71010; 80048; 80061; 82550; 82553; 83036; 83735; 84132; 84443; 84484; 85025; 85610; 85730; 90935; 93005; C1750; C1769; J0610; J0690; J1200; J1644; J2001; J2060; J2250; J2270; J3010; J7040; Q9967

== ENCOUNTER 2017-07-16 06:08 | Day surgery (SDC) | payer OTHER ==
[~2017-07-16] VITALS: Ht 172.7 cm; Wt 50.6 kg
[2017-07-16] VITALS (9 sets, daily range): BP systolic 145–161; BP diastolic 70–91; PULSE 70–78; RESP 15–28; Ht 172.7 cm; Wt 50.6 kg
[~2017-07-16 06:08] MED LIST changes: +ECUL300V IV; -PEN500 PO; +SODI15OR PO
[2017-07-16] MEDS ORDERED: FAMO40TA52 PO (07:00)
[2017-07-16] MEDS ORDERED: NIFE60TA7 PO (07:00)
[2017-07-16] MEDS ORDERED: CLON0.2T5 PO (07:00)
[2017-07-16] MEDS ORDERED: THROMBIN 5000 UNIT VIAL ONE (07:18)
[2017-07-16] MEDS ORDERED: LIDOCAINE 1% (STERILE-PAK) 30 ML INJ ONE (07:18)
[2017-07-16] MEDS ORDERED: GELATIN SIZE 100 SPONGE ONE (07:18)
[2017-07-16] MEDS ORDERED: HEPARIN 1000 UNITS/ML 10 ML INJ ONE (07:18)
[2017-07-16] MEDS ORDERED: MIDAZOLAM 1 MG/ML 2 ML INJ ONE (07:34)
[2017-07-16] MEDS ORDERED: ROPIVACAINE 0.5 % 30 ML VIAL ONE (07:58)
[2017-07-16] MEDS ORDERED: FENTAnyl 50 MCG/ML VIAL ONE (08:20)
[2017-07-16] MEDS ORDERED: CEFAZOLIN 1 GM INJ ONE (08:24)
[2017-07-16] MEDS ORDERED: METOCLOPRAMIDE 10 MG INJ IV PRN (08:30)
[2017-07-16] MEDS ORDERED: ONDANSETRON 4 MG INJ IV PRN (08:30)
[2017-07-16] MEDS ORDERED: LABETALOL HCL 20MG INJ IV PRN (08:30)
[2017-07-16] MEDS ORDERED: FENTAnyl 50 MCG/ML VIAL IV PRN (08:30)
[2017-07-16] MEDS ORDERED: HYDROmorphONE (0.2 MG/ML) 10ML SYG IV PRN (08:30)
[2017-07-16] MEDS ORDERED: DIPHENHYDRAMINE 50 MG INJ IV PRN (08:30)
[2017-07-16] MEDS ORDERED: PIPER-TAZO 3.375 GM IV (PMX) 100 ML ONE (08:41)
[2017-07-16] MEDS ORDERED: GELATIN SIZE 100 SPONGE TOP ONE (08:51)
--- NOTE | 2017-07-16 10:06 | HPN ---
Date/Time of Note Date/Time of Note DATE: 07/16/17 TIME: 10:05 Interval H&P Admission Note Pt. seen H&P reviewed: No system changes JAMES HAQUE MD Jul 16, 2017 10:06
--- NOTE | 2017-07-16 10:07 | CONS ---
Date/Time of Note Date/Time of Note DATE: 07/16/17 TIME: 10:06 Consultation Date/Type/Reason Admit Date/Time Hx of Present Illness [facility] HISTORY AND PHYSICAL UPDATE Dear Doctors: Mr. Kenny is a 52-year-old gentleman with a past medical history of AAUS who ended up having end-stage renal disease and has been on hemodialysis over the past 3 to 4 years. The patient had undergone left radiocephalic fistula that was done at [facility] and has been having issues with it over the past few months. The patient has undergone multiple interventions of the left upper extremity fistula; however, in January it was non-salvageable any longer and he has a new right common femoral vein hemodialysis permanent catheter. The patient has missed a couple of appointments in the past for scheduling her for a new creation of a left upper extremity fistula. He is here today for his followup and for scheduling. The patient mentions that he has been having his blood pressure medications changed as he still has hypertension and he has been having some issues with his recent insurance company changes with getting inadequate primary care physician and a command and control specialist that works within his plan. At the moment, he denies shortness of breath, chest pain, nausea, vomiting, fever, or chills. He denies upper extremity claudication and rest pain-like symptoms. PHYSICAL EXAMINATION: GENERAL: Alert and oriented x2. LUNGS: Clear to auscultation bilaterally. HEART: S1, S2 present. ABDOMEN: Soft, nontender, nondistended. Bowel sounds positive. EXTREMITIES: Left upper extremity palpable brachial pulse. Motor, sensory intact. Cap refill 2 to 3 seconds. Surgical scar well healed. Fistula with minimal bruit and thrill at the wrist. ASSESSMENT AND PLAN: End-stage renal disease: It seems that the patient is no longer a functioning left upper extremity radiocephalic fistula. We will plan to create a new one in his forearm area which would entail an upper arm brachiocephalic fistula. We will schedule the patient in the coming week or so. We will have him get clearance from his primary care physician. We also offered to help find him a primary care physician on the left side in order for him to have adequate coverage under his new plan. Discussed findings, plan, and management with the patient, and he understands. Discussed smoking cessation with the patient and he understands the risks involved and at the moment does not like to quit. Discussed vascular optimization (BP meds, diet, nutrition, exercise, sugar control, antiplatelets). Thank you for allowing us to partake in the care of your patient. Please call with any questions. Social History Smoking Status: Current every day smoker Exam/Review of Systems Vital Signs Vitals Vital Signs Date Time Temp Pulse Resp B/P Pulse Ox O2 Delivery O2 Flow Rate FiO2 07/16/17 07:01 97.4 74 18 159/87 100 Room Air Intake and Output 07/15/17 07/15/17 07/16/17 15:00 23:00 07:00 Intake Total 0 ml Balance 0 ml Results Result Diagram: 07/16/17 0700 Results 24 hrs Laboratory Tests Test 07/16/17 07:00 Potassium Level 5.1 JAMES HAQUE MD Jul 16, 2017 10:07
--- NOTE | 2017-07-16 10:11 | OPR ---
Date/Time of Note Date/Time of Note DATE: 07/16/17 TIME: 10:07 Operative Report Free Text/Dictation DATE OF OPERATION: 07/16/2017 SURGEON: Geoff Haque MD PREOPERATIVE DIAGNOSIS: ESRD POSTOPERATIVE DIAGNOSIS: SAME PROCEDURE: Creation of a left arm brachiocephalic arteriovenous fistula. ANESTHESIA: Regional Block and Local COMPLICATIONS: None. ESTIMATED BLOOD LOSS: Minimal. TRANSFUSIONS: None SPECIMEN: None. INDICATIONS: This is a 52-year-old male with a history of impending end-stage renal artery disease. The risks and benefits of the procedure were discussed with the patient and not limited to , [place], pneumonia, stroke, infection, thrombosis of graft and arteriovenous fistula, nerve injury, limb loss, revisions of AVF, steal and she elected to undergo surgical intervention. DESCRIPTION: The patient was placed in supine position on the operating room table. The arms were placed at 80 degrees. The normal bony prominences were padded. The anesthesia team had placed the appropriate lines and anesthesia was induced. Time out performed and the appropriate site was marked and confirmed. The patient's upper extremity prepped and draped in the usual standard sterile fashion. Preoperative antibiotics were administered prior to the skin incision since the patient already had been on antibiotics. A 6 cm transverse skin incision was then performed below the antecubital fossa. The cephalic vein was identified and dissected for a segment of nearly 5 cm. The cephalic vein was from the antecubital vein as it branched to the basilic vein in the upper arm, in order to preserve the proximal basilic vein. This was reconstructed using a 6-0 Prolene suture. Dissection was then carried as distally as possible through that incision. Attention was then directed to the brachial artery. The tendinous aponeurosis of the biceps muscle was then incised. Location of the brachial artery was then identified by palpation. The soft tissue over the brachial artery was then incised, and the brachial artery was then confirmed. The patient was given 2500 units of heparin intravenously. The cephalic vein was then ligated at its most distal end. Yasargil clamps were then applied on the brachial artery, and a 6 mm incision in the anterior wall of the brachial artery was then performed. The cephalic vein was then gently curved and allowed to lay over the arteriotomy. The end of the vein was spatulated to match the side of the arteriotomy. The anastomosis was then performed using a running 6-0 Prolene suture. At the completion of the suture line the brachial artery was forward-flushed and then allowed to backbleed. The cephalic vein was also allowed to backbleed. The anastomosis was irrigated with heparinized saline solution. The suture was then tied and the suture line evaluated for hemostasis, which was adequate. There was evidence of excellent thrill in the cephalic vein. There was a strong pulse palpable in the brachial, radial, and ulnar arteries at the wrist. There was no evidence of any kinks. The subcutaneous tissue was then closed with a 3-0 Vicryl running suture and the skin closed with ludmila. There was evidence of excellent thrill in the cephalic vein after the wound closure. The patient tolerated the procedure well, was taken to the postanesthesia care unit in stable condition. All instruments, catheters, sponge, and needles were corrected x2. GEOFF HAQUE MD Jul 16, 2017 10:11
--- NOTE | 2017-07-16 10:29 | PDOCDIS ---
Discharge Instructions DIAGNOSIS Discharge Diagnosis ESRD CONDITION Patient Condition: Good HOME CARE INSTRUCTIONS: Special Diet: RENAL DIET ACTIVITY: Activity Restrictions: Slowly Increase Activity Rest between Activity Avoid heavy lifting Do not Drive Do not operate Machinery Do not operate Power Tool Avoid Heavy Housework Keep Limb Elevated Activity Restrictions Comment: MAY SHOWER IN TWO DAYS FOLLOW UP/APPOINTMENTS Follow-up Plan FOLLOW UP IN 2 WEEKS KEEP ARM SLING ON FOR 8-10 HOURS, ONCE YOU CAN FEEL YOUR FINGER TIPS AND MOVE THEM, THEN YOU CAN REMOVE THE ARM SLING MAY SHOWER IN 48HOURS NO BATHING OR SWIMMING ALLOW THE STERI STRIPS TO COME OFF ON THE THEIR OWN JAMES HAQUE MD Jul 16, 2017 10:29
== END 2017-07-16 11:30 | disposition home or self-care (01) ==
LOC: SDS 06:08
PROVIDERS: ATTEND Student in an Organized Health Care Education/Training Program
DX: I12.0 Hypertensive chronic kidney disease with stage 5 chronic kidney disease or end stage renal disease (principal); N18.6 End stage renal disease; E78.5 Hyperlipidemia, unspecified
CPT/HCPCS: 36821; 84132; J0690; J1644; J2250; J2543; J2795; J3010; Z7512; Z7610

== ENCOUNTER 2017-11-27 08:53 | Day surgery (SDC) | END 2017-11-27 12:20 | disposition home or self-care (01) ==